=== PATIENT | female | born 1935 | race Caucasian/White ===

== ENCOUNTER 2025-05-24 01:41 | Inpatient (IN) | payer MEDICARE, OTHER ==
[~2025-05-24] VITALS: Ht 160 cm; Wt 79.4 kg
[~2025-05-24 01:41] MED LIST: AMLO1TAB21 PO
--- NOTE | 2025-05-24 01:56 | ECG ---
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
--- NOTE | 2025-05-24 01:59 | ED.PDOC ---
HPI Comments 89 year old female with PMHx HTN presents to the ED via EMS with a chief compliant of chest pain onset today around 00:00. Per EMS, patient was laying down trying to sleep, when she began experiencing LT sided chest pain. She was taking Amlodipine for HTN, PCP told her to stop taking it. She checked BP at home around 13:00, was 150 systolic, took a dose of Amlodipine. Upon EMS arrival, BP was 221/100, was given Aspirin and Nitro in route to ED, upon ED arrival chest pain has not resolved, rates pain 0/10. Denies shortness of breath, cough, cold, congestion, headache, blurred vision,numbness/tingling, weakness, fever, chills, nausea, vomiting, diarrhea. No other symptoms or modifying factors present at this time. Time Seen by MD: 01:55 Primary Care Provider: DR WORRELL Reviewed Notes: Medications, Allergies Allergies: Coded Allergies: Levofloxacin (Verified Allergy, Severe, 01/13/15) Home Meds Reported Medications Amlodipine Besylate (Amlodipine Besylate) 2.5 Mg Tab, 2.5 MG PO DAILY, #30 01/13/15 Information Source: Patient, Emergency Med Personnel Mode of Arrival: EMS Severity: Moderate Timing: Hours Duration: Since onset Prehospital treatment: Other (Nitro, aspirin) Location: Chest (L) Radiation: Neck, Shoulder (L) Quality: Sharp Onset: At Rest Cardiac Risk Factors: HTN PE Risk Factors: None History of: None Modifying Factors: Nothing Past Medical History PAST MEDICAL HISTORY: HTN Surgical History: Hysterectomy 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 INSPECTOR History: No Pertinent DRAINAGE INSPECTOR History Family History Family History: Unobtainable Social History Smoker: Non-Smoker Alcohol: Denies ETOH Use Drugs: Denies Drug Use Lives In: Home Constitutional: denies: chills, diaphoresis, fatigue, fever, malaise, sweats, weakness, others EENTM: denies: blurred vision, double vision, ear bleeding, ear discharge, ear drainage, ear pain, ear ringing, eye pain, eye redness, hearing loss, mouth pain, mouth swelling, nasal discharge, nose bleeding, nose congestion, nose pain, photophobia, tearing, throat pain, throat swelling, voice changes, others Respiratory: denies: cough, hemoptysis, orthopnea, SOB at rest, shortness of breath, SOB with excertion, stridor, wheezing, others Cardiovascular: reports: chest pain; denies: dizzy spells, diaphoresis, Dyspnea on exertion, edema, irregular heart beat, left arm pain, lightheadedness, palpitations, PND, syncope, others Gastrointestinal: denies: abdomen distended, abdominal pain, blood streaked bowels, constipated, diarrhea, dysphagia, difficulty swallowing, hematemesis, melena, nausea, poor appetite, poor fluid intake, rectal bleeding, rectal pain, vomiting, others Genitourinary: denies: abnormal vagina bleeding, burning, dyspareunia, dysuria, flank pain, frequency, hematuria, incontinence, pain, , vagina discharge, urgency, others Neurological: denies: dizziness, fainting, headache, left sided numbness, left sided weakness, numbness, paresthesia, pre-existing deficit, right sided numbness, right sided weakness, seizure, speech problems, tingling, tremors, weakness, others Musculoskeletal: reports: neck pain, others (LT shoulder pain); denies: back pain, gout, joint pain, joint swelling, muscle pain, muscle stiffness Integumetry: denies: bruises, change in color, change in hair/nails, dryness, laceration, lesions, lumps, rash, wounds, others Allergic/Immunocompromised: denies: Difficulty Healing, Frequent Infections, Hives, Itching, others Hematologic/Lymphatic: denies: anemia, blood clots, easy bleeding, easy bruising, swollen glands, others Endocrine: denies: excessive hunger, excessive sweating, excessive thirst, excessive urination, flushing, intolerance to cold, intolerance to heat, unexplained weight gain, unexplained weight loss, others Psychiatric: denies: anxiety, bipolar disorder, depression, hopeless, panic disorder, schizophrenia, sleepless, suicidal, others All Other Systems: Reviewed and Negative Physical Exam General Appearance: No Apparent Distress, Normal HEENT: Normal ENT Inspection, Pharynx Normal, TMs Normal Neck: Full Range of Motion, Non-Tender, Normal, Normal Inspection Respiratory: Chest Non-Tender, Lungs Clear, No Accessory Muscle Use, No Respiratory Distress, Normal Breath Sounds Cardiovascular: No Edema, No JVD, No Murmur, No Gallop, Normal Peripheral Pulses, Regular Rate/Rhythm Breast Exam: Deferred Gastrointestinal: No Organomegaly, Non Tender, No Pulsatile Mass, Normal Bowel Sounds, Soft Genitalia: Deferred Pelvic: Deferred Rectal: Deferred Extremities: No calf tenderness, Normal capillary refill, Normal inspection, Normal range of motion, Non-tender, No pedal edema Musculoskeletal : Apperance: Normal Neurologic: Alert, leguillon debeader II-XII nml as Tested, No Motor Deficits, Normal Affect, Normal Mood, No Sensory Deficits Cerebellar Function: Normal Reflexes: Normal Skin: Dry, Normal Color, Warm Lymphatic: No Adenopathy Was a procedure done? Was a procedure done?: No CP Differential Dx Differential Diagnosis: A-fib, A-Flutter, Angina, Digoxin Toxicity, Electrolyte Disorder, Heart Failure, Hyperthyroidism, Hyperventilation, Hypoxia, PAC's, PSVT, Pulmonary Embolus, Ventricular Dysrhythmia, V-Fib, V-Tach, Other X-Ray, Labs, Meds, VS Vital Signs Date Time Temp Pulse Resp B/P (MAP) Pulse Ox O2 Delivery O2 Flow Rate FiO2 05/24/25 04:39 51 05/24/25 04:26 97.5 64 14 156/76 (102) 95 97.5 05/24/25 02:59 53 05/24/25 02:25 99.5 64 20 158/75 95 99.5 05/24/25 01:48 61 Lab Test 05/24/25 05:12 05/24/25 02:50 05/24/25 02:03 Range/Units Troponin I High Sensitivity Pending 27 28 </=34 ng/L White Blood Count 6.3 4.4-10.8 10^3/uL Red Blood Count 4.53 4.0-5.20 10^6/uL Hemoglobin 13.4 12.2-16.2 g/dL Hematocrit 40.5 36.0-46.0 % Mean Corpuscular Volume 89.5 80.0-100.0 fL Mean Corpuscular Hemoglobin 29.5 28.0-32.0 pg Mean Corpuscular Hemoglobin Concent 33.0 32.0-36.0 g/dL Red Cell Distribution Width 14.3 11.8-14.3 % Platelet Count 173 140-450 10^3/uL Mean Platelet Volume 9.3 6.9-10.8 fL Neutrophils (%) (Auto) 57.0 37.0-80.0 % Lymphocytes (%) (Auto) 28.2 10.0-50.0 % Monocytes (%) (Auto) 8.7 0.0-12.0 % Eosinophils (%) (Auto) 5.0 0.0-7.0 % Basophils (%) (Auto) 1.1 0.0-2.0 % Neutrophils # (Auto) 3.6 1.6-8.6 10 ^3/uL Lymphocytes # (Auto) 1.8 0.4-5.4 10 ^3/uL Monocytes # (Auto) 0.5 0-1.3 10 ^3/uL Eosinophils # (Auto) 0.3 0-0.8 10 ^3/uL Basophils # (Auto) 0.1 0-0.2 10 ^3/uL Nucleated Red Blood Cells 0.0 % Prothrombin Time 11.3 9.3-11.8 sec Prothrombin Time INR 1.07 0.9-1.15 Activated Partial Thromboplast Time 28.4 24.5-34.5 SEC Sodium Level 145 136-145 mmol/L Potassium Level 4.0 3.5-5.1 mmol/L Chloride Level 111 H 98-107 mmol/L Carbon Dioxide Level 26 20-31 mmol/L Anion Gap 8 5-15 Blood Urea Nitrogen 14 9-23 mg/dL Creatinine 0.87 0.550-1.02 mg/dL Glomerular Filtration Rate Calc 64 >90 mL/min BUN/Creatinine Ratio 16.1 10.0-20.0 Serum Glucose 91 74-106 mg/dL Calcium Level 9.8 8.7-10.4 mg/dL Magnesium Level 2.3 1.6-2.6 mg/dL Total Bilirubin 0.9 0.2-1.0 mg/dL Aspartate Amino Transferase (AST) 28 13-40 U/L Alanine Aminotransferase (ALT) 13 7-40 U/L Alkaline Phosphatase 100 46-116 U/L B-Type Natriuretic Peptide 56.54 0-100 pg/mL Total Protein 7.1 5.7-8.2 g/dL Albumin 3.7 3.2-4.8 g/dL Time of 1ST Reevaluation: 02:25 Reevaluation 1ST: Unchanged Patient Education/Counseling: Diagnosis, Treatment, Need For Follow Up Family Education/Counseling: No Family Present SEPSIS Sepsis Screen Physician Orders Troponin-I Hs (05/24/25 04:55) Chest Xray 1 View (05/24/25 01:55) Vital Signs Date Time Temp Pulse Resp B/P (MAP) Pulse Ox O2 Delivery O2 Flow Rate FiO2 05/24/25 04:39 51 05/24/25 04:26 97.5 64 14 156/76 (102) 95 97.5 05/24/25 02:59 53 05/24/25 02:25 99.5 64 20 158/75 95 99.5 05/24/25 01:48 61 Laboratory Tests Test 05/24/25 02:03 White Blood Count 6.3 10^3/uL (4.4-10.8) Departure 1 Departure Time of Disposition: 05:48 Impression: Primary Impression: Acute coronary syndrome Disposition: ADMITTED INPATIENT Admit to: Tele Condition: Guarded Discharged With: Self Comments 89-year-old female with chest pain that is suspicious for cardiac etiology. Has a history of hypertension. Initial troponin is normal. Patient was given aspirin and and nitro in the field and her chest pain improved. Patient will need to be admitted for supportive care and further cardiac workup. Critical Care Note Critical Care Time?: Yes (35 min-critical care time only) Critical care comment: Total critical care time: Approximately 36 minutes Due to a high probability of clinically significant, life threatening deterioration, the patient required my highest level of preparedness to intervene emergently and I personally spent this critical care time directly and personally managing the patient. This critical care time included obtaining a history; examining the patient; pulse oximetry; ordering and review of studies; arranging urgent treatment with development of a management plan; evaluation of patient's response to treatment; frequent reassessment; and, discussions with other providers. This critical care time was performed to assess and manage the high probability of imminent, life-threatening deterioration that could result in multi-organ failure. It was exclusive of separately billable procedures and treating other patients. Stability Stability form required: No Heart Score Heart Score: Heart Score Response (Comments) Value History Moderate Suspicious 1 EKG Repolarization Disturb 1 Age >65 2 Risk Factors 1 or 2 risk factors 1 Troponin Normal limit 0 Total 5 I personally scribed for HARRIET ARGUETA MD ([email or web address]) on 05/24/25 at 01:59. Electronically submitted by Angelica Mcgregor ([email or web address]). HARRIET ARGUETA MD May 24, 2025 01:59
[2025-05-24 02:17] LABS: Hematocrit 40.5 % (36.0-46.0); Hemoglobin 13.4 g/dL (12.2-16.2); Mean Corpuscular Hemoglobin 29.5 pg (28.0-32.0); Mean Corpuscular Volume 89.5 fL (80.0-100.0); Nucleated Red Blood Cells % 0.0 %
[2025-05-24 02:31] LABS: Alanine Aminotransferase 13 U/L (7-40); Albumin 3.7 g/dL (3.2-4.8); Alkaline Phosphatase 100 U/L (46-116); Anion Gap 8 (5-15); Calcium 9.8 mg/dL (8.7-10.4); Carbon Dioxide 26 mmol/L (20-31); Glucose 91 mg/dL (74-106); INR 1.07 (0.9-1.15); Magnesium 2.3 mg/dL (1.6-2.6); Partial Thromboplastin Time 28.4 SEC (24.5-34.5); Potassium 4.0 mmol/L (3.5-5.1); Prothrombin Time 11.3 sec (9.3-11.8); Sodium 145 mmol/L (136-145)
[2025-05-24 02:44] LABS: Total Protein 7.1 g/dL (5.7-8.2)
[2025-05-24 02:46] LABS: Bilirubin, Total 0.9 mg/dL (0.2-1.0)
[2025-05-24 03:06] LABS: Chloride 111 mmol/L (98-107)
[2025-05-24 03:15] LABS: BUN/Creatinine Ratio 16.1 (10.0-20.0); Blood Urea Nitrogen 14 mg/dL (9-23)
--- NOTE | 2025-05-24 06:16 | DVH ---
CHEST RADIOGRAPH Indication: chest pain Technique: Single frontal view of the chest was obtained Comparison: None FINDINGS: Lines and Tubes: None Lungs: No focal consolidation. Pleura: No effusion. No pneumothorax. Cardiomediastinal contours: Unremarkable Bones: No acute osseous abnormality. IMPRESSION: 1. No acute cardiopulmonary disease.
[2025-05-24 07:45] VITALS: PULSE 61; RESP 12; O2SAT 95
[2025-05-24] MEDS ORDERED: MORPHINE SULFATE INJ 2 MG/ml SYRG IV PRN (10:45)
[2025-05-24] MEDS ORDERED: ACETAMINOPHEN 325 MG TAB PO PRN (10:45)
[2025-05-24] MEDS ORDERED: MORPHINE SULFATE 4 MG/ML SYR/VIAL IV PRN (10:45)
[2025-05-24] MEDS ORDERED: NITROGLYCERIN 0.4 MG SL TAB SL PRN ×2 (10:45)
[2025-05-24] MEDS ORDERED: ONDANSETRON HCL 4 MG/2 ML VIAL IV PRN (10:45)
--- NOTE | 2025-05-24 10:46 | DVHHP2 ---
History of Present Illness Reason for Visit: Chest pain History of Present Illness Edel Zabala is an 89-year-old female with past medical history of hypertension who presents to the ED with chest pain that began today around midnight that radiates to the left neck and shoulder. She reports it is more of a discomfort. She reports that she was taking amlodipine for her blood pressure and was told shortly afterwards by her primary to stopped taking it as it was dropping her blood pressure too much. Per EMS reports blood pressure on arrival was 221/100 was given aspirin and nitro EN route with the chest pain resolving. Patient is hard of hearing. Patient denies any recent trauma or injury, recent sick contacts, recent travels, recent ingestion of spoiled food,, shortness of breath, fever, chills, lightheadedness, weakness, dizziness, abdominal pain, nausea, vomiting, diarrhea, or urinary symptoms. Patient reports that she uses a cane to ambulate and lives at home with her son. Cardiovascular: HTN Past Medical History Hard of hearing Past Surgical History: None Family History: Cancer, Other (Mom with lung cancer and dad with kidney disease.) Smoke: No ALCOHOL: none Drugs: None Lives: with Family Domestic Violence: Neg Review of Systems Cardiovascular: Chest Pain Musculoskeletal: neck pain, shoulder pain Allergies: Coded Allergies: Levofloxacin (Verified Allergy, Severe, 01/13/15) Exam Vital Signs Vital Signs Date Time Temp Pulse Resp B/P (MAP) Pulse Ox O2 Delivery O2 Flow Rate FiO2 05/24/25 08:00 56 05/24/25 07:45 97.6 12 154/72 (99) 95 97.6 05/24/25 07:45 Room Air* 0 21 General Appearance: Alert, Oriented X3, Cooperative, No acute distress HEENT: Atraumatic, PERRLA, EOMI, Mucous membr. moist/pink Respiratory: Clear to auscultation, Normal air movement Cardiovascular: Normal S1, Normal S2, No murmurs Abdominal: Normal bowel sounds, Soft Extremities: No clubbing, No cyanosis, No edema, Normal pulses Neuro: Normal speech, Normal tone, Sensation intact Psych/Mental Status: Mental status NL, Mood NL Labs/Xrays Labs Test 05/24/25 05:12 05/24/25 02:03 Range/Units Troponin I High Sensitivity 22 </=34 ng/L White Blood Count 6.3 4.4-10.8 10^3/uL Red Blood Count 4.53 4.0-5.20 10^6/uL Hemoglobin 13.4 12.2-16.2 g/dL Hematocrit 40.5 36.0-46.0 % Mean Corpuscular Volume 89.5 80.0-100.0 fL Mean Corpuscular Hemoglobin 29.5 28.0-32.0 pg Mean Corpuscular Hemoglobin Concent 33.0 32.0-36.0 g/dL Red Cell Distribution Width 14.3 11.8-14.3 % Platelet Count 173 140-450 10^3/uL Mean Platelet Volume 9.3 6.9-10.8 fL Neutrophils (%) (Auto) 57.0 37.0-80.0 % Lymphocytes (%) (Auto) 28.2 10.0-50.0 % Monocytes (%) (Auto) 8.7 0.0-12.0 % Eosinophils (%) (Auto) 5.0 0.0-7.0 % Basophils (%) (Auto) 1.1 0.0-2.0 % Neutrophils # (Auto) 3.6 1.6-8.6 10 ^3/uL Lymphocytes # (Auto) 1.8 0.4-5.4 10 ^3/uL Monocytes # (Auto) 0.5 0-1.3 10 ^3/uL Eosinophils # (Auto) 0.3 0-0.8 10 ^3/uL Basophils # (Auto) 0.1 0-0.2 10 ^3/uL Nucleated Red Blood Cells 0.0 % Prothrombin Time 11.3 9.3-11.8 sec Prothrombin Time INR 1.07 0.9-1.15 Activated Partial Thromboplast Time 28.4 24.5-34.5 SEC Sodium Level 145 136-145 mmol/L Potassium Level 4.0 3.5-5.1 mmol/L Chloride Level 111 H 98-107 mmol/L Carbon Dioxide Level 26 20-31 mmol/L Anion Gap 8 5-15 Blood Urea Nitrogen 14 9-23 mg/dL Creatinine 0.87 0.550-1.02 mg/dL Glomerular Filtration Rate Calc 64 >90 mL/min BUN/Creatinine Ratio 16.1 10.0-20.0 Serum Glucose 91 74-106 mg/dL Calcium Level 9.8 8.7-10.4 mg/dL Magnesium Level 2.3 1.6-2.6 mg/dL Total Bilirubin 0.9 0.2-1.0 mg/dL Aspartate Amino Transferase (AST) 28 13-40 U/L Alanine Aminotransferase (ALT) 13 7-40 U/L Alkaline Phosphatase 100 46-116 U/L B-Type Natriuretic Peptide 56.54 0-100 pg/mL Total Protein 7.1 5.7-8.2 g/dL Albumin 3.7 3.2-4.8 g/dL CHEST RADIOGRAPH Indication: chest pain Technique: Single frontal view of the chest was obtained Comparison: None FINDINGS: Lines and Tubes: None Lungs: No focal consolidation. Pleura: No effusion. No pneumothorax. Cardiomediastinal contours: Unremarkable Bones: No acute osseous abnormality. IMPRESSION: 1. No acute cardiopulmonary disease. SEPSIS Sepsis Screen Date sepsis recognized/suspect: May 24, 2025 Time Sepsis recognized/suspect: 744 Recent Procedure: No On Antibiotic Therapy: No Respiratory Rate >20: No Heart Rate >90: No Temp<36 C (96.8 F) or >38.3 C: No SBP <90 or MAP <65 mmHG: No New Acute Mental Status Change: No Is the patient on CPAP, BIPAP,: No Vital Signs Date Time Temp Pulse Resp B/P (MAP) Pulse Ox O2 Delivery O2 Flow Rate FiO2 05/24/25 08:00 56 05/24/25 07:45 97.6 61 12 154/72 (99) 95 97.6 05/24/25 07:45 61 12 95 Room Air* 0 21 05/24/25 06:29 98.1 62 16 185/74 (111) 96 98.1 05/24/25 06:29 Room Air* 0 21 05/24/25 04:39 51 05/24/25 04:26 97.5 64 14 156/76 (102) 95 97.5 05/24/25 02:59 53 Laboratory Tests Test 05/24/25 02:03 White Blood Count 6.3 10^3/uL (4.4-10.8) Assessment/Plan Assessment/Plan Assessment Chest pain radiating to the left neck and shoulder Hypertensive urgency Hard of hearing History of hypertension Plan Admit to tele Three EKGs noted Antihypertensives Antiemetics Pain management Aspirin + statin Troponin noted Chest x-ray noted BNP PT/PTT Mag level UA UDS Echo ordered Hemoglobin A1c Free T4 Lipid Diet Home medications, she reports she no longer takes amlodipine DVT prophylaxis-SCDs PUD prophylaxis-not indicated history of GERD or GI bleed Discussed plan of care with patient and nurse [id number] Preventive counseling healthy eating habits, physical activity, and regular checkups Plan discussed with: Patient Date of Service: May 24, 2025 Billing Provider: ALVA CUNNINGHAM Common Visit Codes: [id number] INP/OBS CARE (HIGH) Secondary Visit Codes: [id number] COUNSELING IND ALVA CUNNINGHAM May 24, 2025 10:46
[2025-05-24] MEDS: LOSARTAN POTASSIUM 25 MG TAB PO SCH (10:53)
[2025-05-24 12:01] VITALS: PULSE 62; RESP 16
[2025-05-24 13:00] VITALS: BP 153/72; PULSE 62; RESP 18; TEMP 99; O2SAT 93
[2025-05-24 16:30] LABS: Urine Protein, UAD Negative (Negative)
[2025-05-24 16:44] LABS: Amphetamine Screen, Urine Neg (NEGATIVE); Barbiturate Scree,Urine Neg (NEGATIVE); Benzodiazephine Screen, Urine Neg (NEGATIVE); Cannabinoid Screen, Urine Neg (NEGATIVE); Cocaine Screen, Urine Neg (NEGATIVE); Opiate Scree,Urine Neg (NEGATIVE); Phencyclidine Screen, Urine Neg (NEGATIVE)
[2025-05-24 17:55] VITALS: BP 132/61; PULSE 51; RESP 17; TEMP 97.6; O2SAT 95
[2025-05-24 20:00] VITALS: PULSE 58; PULSE 65; RESP 18; O2SAT 94
[2025-05-24 21:00] VITALS: BP 126/53; PULSE 58; RESP 18; TEMP 98; O2SAT 94
[2025-05-24] MEDS: ATORVASTATIN 20 MG TAB PO SCH (21:43)
[2025-05-25 01:00] VITALS: BP 128/68; PULSE 62; RESP 18; TEMP 97.8; O2SAT 96
--- NOTE | 2025-05-25 04:16 | ECG ---
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
[2025-05-25 05:00] VITALS: BP 141/69; PULSE 59; RESP 17; TEMP 98.1; O2SAT 99
[2025-05-25 06:22] LABS: Hematocrit 39.6 % (36.0-46.0); Hemoglobin 13.4 g/dL (12.2-16.2); Mean Corpuscular Hemoglobin 30.1 pg (28.0-32.0); Mean Corpuscular Volume 88.9 fL (80.0-100.0); Nucleated Red Blood Cells % 0.0 %
[2025-05-25 06:33] LABS: Anion Gap 11 (5-15); Carbon Dioxide 26 mmol/L (20-31); Potassium 3.9 mmol/L (3.5-5.1)
[2025-05-25 06:34] LABS: Calcium 8.9 mg/dL (8.7-10.4)
[2025-05-25 06:35] LABS: Chloride 110 mmol/L (98-107); Sodium 147 mmol/L (136-145)
[2025-05-25 06:38] LABS: Glucose 80 mg/dL (74-106)
[2025-05-25 06:39] LABS: BUN/Creatinine Ratio 20.7 (10.0-20.0); Blood Urea Nitrogen 19 mg/dL (9-23); Magnesium 2.0 mg/dL (1.6-2.6); Triglycerides 85 mg/dL (< 150)
[2025-05-25 06:40] LABS: Cholesterol 182 mg/dL (< 200)
[2025-05-25 06:41] LABS: HDL Cholesterol 62 mg/dL (40-59)
[2025-05-25 08:00] VITALS: PULSE 52
[2025-05-25 08:06] VITALS: RESP 18
[2025-05-25 09:00] VITALS: BP 92/54; PULSE 51; RESP 15; TEMP 97.9; O2SAT 100
[2025-05-25] MEDS ORDERED: PATIENTS OWN MEDICATION (Amlodipine Besylate 2.5 MG) PO SCH (10:00)
[2025-05-25] MEDS ORDERED: LOS25T PO (10:01)
--- NOTE | 2025-05-25 10:04 | DVHDS2 ---
Discharge Summary Date of Admission May 24, 2025 at 10:31 Date of Discharge: May 25, 2025 Labs/Diagnostic Data: Laboratory Results Test 05/25/25 05:43 05/24/25 15:00 05/24/25 05:12 05/24/25 02:03 White Blood Count 5.6 10^3/uL (4.4-10.8) Red Blood Count 4.46 10^6/uL (4.0-5.20) Hemoglobin 13.4 g/dL (12.2-16.2) Hematocrit 39.6 % (36.0-46.0) Mean Corpuscular Volume 88.9 fL (80.0-100.0) Mean Corpuscular Hemoglobin 30.1 pg (28.0-32.0) Mean Corpuscular Hemoglobin Concent 33.8 g/dL (32.0-36.0) Red Cell Distribution Width 14.3 % (11.8-14.3) Platelet Count 185 10^3/uL (140-450) Mean Platelet Volume 9.1 fL (6.9-10.8) Neutrophils (%) (Auto) 54.8 % (37.0-80.0) Lymphocytes (%) (Auto) 31.2 % (10.0-50.0) Monocytes (%) (Auto) 8.8 % (0.0-12.0) Eosinophils (%) (Auto) 4.3 % (0.0-7.0) Basophils (%) (Auto) 0.9 % (0.0-2.0) Neutrophils # (Auto) 3.1 10 ^3/uL (1.6-8.6) Lymphocytes # (Auto) 1.7 10 ^3/uL (0.4-5.4) Monocytes # (Auto) 0.5 10 ^3/uL (0-1.3) Eosinophils # (Auto) 0.2 10 ^3/uL (0-0.8) Basophils # (Auto) 0.1 10 ^3/uL (0-0.2) Nucleated Red Blood Cells 0.0 % Sodium Level 147 mmol/L (136-145) Potassium Level 3.9 mmol/L (3.5-5.1) Chloride Level 110 mmol/L (98-107) Carbon Dioxide Level 26 mmol/L (20-31) Anion Gap 11 (5-15) Blood Urea Nitrogen 19 mg/dL (9-23) Creatinine 0.92 mg/dL (0.550-1.02) Glomerular Filtration Rate Calc 60 mL/min (>90) BUN/Creatinine Ratio 20.7 (10.0-20.0) Serum Glucose 80 mg/dL (74-106) Calcium Level 8.9 mg/dL (8.7-10.4) Magnesium Level 2.0 mg/dL (1.6-2.6) Troponin I High Sensitivity 10 ng/L (</=34) Triglycerides Level 85 mg/dL (< 150) Cholesterol Level 182 mg/dL (< 200) LDL Cholesterol 109 mg/dL (< 100) HDL Cholesterol 62 mg/dL (40-59) Urine Color Light-yellow (Yellow) Urine Clarity Clear (Clear) Urine pH 7.0 (5.0-9.0) Urine Specific [place] 1.005 (1.001-1.035) Urine Protein Negative (Negative) Urine Ketones Negative (Negative) Urine Blood 1+ /uL (Negative) Urine Nitrite Negative (Negative) Urine Bilirubin Negative (Negative) Urine Urobilinogen Normal mg/dL (Negative) Urine Leukocyte Esterase Negative /uL (Negative) Urine RBC 3 /hpf (0 - 4) Urine Microscopic WBC < 1 /HPF (0-5) Urine Squamous Epithelial Cells Few /hpf (<5) Urine Bacteria None seen /hpf (None Seen) Urine Glucose Normal mg/dL (Normal) Urine Opiates Screen Neg (NEGATIVE) Urine Fentanyl Screen Neg (NEGATIVE) Urine Barbiturates Screen Neg (NEGATIVE) Urine Phencyclidine Screen Neg (NEGATIVE) Urine Amphetamines Screen Neg (NEGATIVE) Urine Benzodiazepines Screen Neg (NEGATIVE) Urine Cocaine Screen Neg (NEGATIVE) Urine Cannabinoids Screen Neg (NEGATIVE) Thyroid Stimulating Hormone (TSH) 2.78 uIU/mL (0.55-4.78) Prothrombin Time 11.3 sec (9.3-11.8) Prothrombin Time INR 1.07 (0.9-1.15) Activated Partial Thromboplast Time 28.4 SEC (24.5-34.5) Hemoglobin A1c 4.9 % A1C (<5.7) Total Bilirubin 0.9 mg/dL (0.2-1.0) Aspartate Amino Transferase (AST) 28 U/L (13-40) Alanine Aminotransferase (ALT) 13 U/L (7-40) Alkaline Phosphatase 100 U/L (46-116) B-Type Natriuretic Peptide 56.54 pg/mL (0-100) Total Protein 7.1 g/dL (5.7-8.2) Albumin 3.7 g/dL (3.2-4.8) Free Thyroxine (T4) Calculated 1.09 ng/dL (0.89-1.76) Other Laboratory Tests 05/25/25 05:43 Brief Hx & Hospital Course: Final diagnoses: Uncontrolled HTN Musculoskeletal chest pain Mixed hyperlipidemia She has stopped amlodipine a week ago due to low BP Now she came with high BP She c/o pain in left neck muscles Troponins neg EKG neg DC home on Losartan 25 mg qd Condition at Discharge: Stable Final Diagnosis/Problems List Uncontrolled HTN Musculoskeletal chest pain Mixed hyperlipidemia Discharge Disposition: Home SNF Discharge Will this Physician continue t: No Discharge Instruct/Medications Diet: Cardiac 2g Na,low cholest Activity: No Restrictions, As Tolerated Follow Up/Referral: PCP ЮЛИЯ Medications: Losartan 25 mg qd Stop amlodipine Scheduled Amlodipine Besylate (Amlodipine Besylate), 2.5 MG PO DAILY, (Reported) Losartan Potassium (Losartan Potassium), 25 MG PO DAILY Discharge Statement: "Patient was advised to return to the ER or call 911 if any headaches, dizziness, shortness of breath, chest pain, abdominal pain, bleeding, fevers, or worsening of medical condition. Patient was counseled about treatment plan, medications, possible side effects, patientverbalized understanding. All questions were answered to the best of my ability. This discharge took greater then 30 minutes in planning, reviewing documentation, counseling the patient, and discussing with other team members." ASSESSMENT ASSESSMENT Assessment Uncontrolled HTN Musculoskeletal chest pain Mixed hyperlipidemia Date of Service: May 25, 2025 Billing Provider: VANDANA GALVIN MD Common Visit Codes: NOT BILLABLE VANDANA GALVIN MD May 25, 2025 10:04
[2025-05-25 10:47] VITALS: BP 133/71; TEMP 36.6
--- NOTE | 2025-05-28 10:23 | DVHSR ---
APPROVED REPORT EXAM: Two-dimensional and M-mode echocardiogram with Doppler and color Doppler. Blood Pressure: 158/65 mmHg INDICATION Chest Pain RISK FACTORS Height: 63, Weight: 154 DIMENSIONS LVDd 4.7 (3.8-5.7cm) LA (2D) 4.2 (1.9-4.0cm) Aortic Root 3.5 (2.0-3.7cm) LVDs 3.2 (2.5-4.0cm) LA (MM) (1.9-4.0cm) Aortic Cusp Exc 1.7 (1.5-2.0cm) EF (%) 60.0 (55-70%) Rt. Atrium 4.9 (1.9-4.0cm) Asc. Aorta cm Mitral Valve Mitral Mitral Stenosis E wave 0.79m/s MV Mean GR. mmHg A wave 0.83m/s MV Peak GR. 111mmHg E/A ratio 1.0 2D MVA cm2 DECEL Time 254ms PRESS 1/2 Time 76ms IVRT ms Dop MVA 2.89cm2 Aortic Valve Aortic Valve Aortic Stenosis V1 1.45m/s AO Mean GR. 6mmHg V2 1.77m/s AO Peak GR. 13mmHg LVOT Diameter 2.2 (1.8-2.4cm) Doppler ROBERT 3.11cm2 AI P 1/2 Time 630.95ms Pulmonic Valve V2 0.93m/s Tricuspid Valve TR Velocity 2.26m/s RVSP 26mmHg Conclusion lvef 60% normal rv function left atrium enlarged no severe valve abnormalities noted mild aortic regurg normal pericardium
--- NOTE | 2025-06-05 06:48 | ECG ---
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
--- NOTE | 2025-06-05 06:49 | ECG ---
[facility] Test Date: 2025-05-24 Test Time: 04:39:18 Pat Name: MIKE JOHNSON Department: Room: 0248T A Gender: F Cook [place]: DAVID : 1935 Requested By: HARRIET ARGUETA Order Number: [id number] Reading MD: Shamir Alston Measurements Intervals [place] Rate: 51 P: -36 CA: 194 QRS: -59 QRSD: 123 T: 16 QT: 453 QTc: 418 Interpretive Statements Sinus rhythm Nonspecific IVCD with LAD Left ventricular hypertrophy Nonspecific T abnormalities, lateral leads Electronically Signed On 06-05-2025 17:32:30 PST by Shamir Alston Please click the below link to view image of tracing.
== END 2025-05-25 11:40 | disposition home or self-care (01) | DRG 305 ==
LOC: EDBD 01:41 → ER 01:41 → OVERFLOW 10:31 → TELE-EAST 12:12
PROVIDERS: ADMIT Internal Medicine Geriatric Medicine; ATTEND Internal Medicine Geriatric Medicine
DX: I16.0 Hypertensive urgency (principal); E78.2 Mixed hyperlipidemia; I10 Essential (primary) hypertension; K21.9 Gastro-esophageal reflux disease without esophagitis; Z88.1 Allergy status to other antibiotic agents; Z90.710 Acquired absence of both cervix and uterus; Z80.1 Family history of malignant neoplasm of trachea, bronchus and lung; Z79.899 Other long term (current) drug therapy
CPT/HCPCS: 36415; 71045; 80048; 80053; 80061; 80307; 81001; 83036; 83735; 83880; 84439; 84443; 84484; 85025; 85610; 85730; 93005; 93306; 99291; G0378